=== PATIENT | male | born 1955 | race Caucasian/White ===

== ENCOUNTER → 2018-07-20 | Emergency (ER) | payer BC ==
[~2018-07-20] MED LIST: ACETAMINOPHEN 650MG/RECT SUPP PR PRN; AMIODARONE HCL 150 MG/3 ML INJ IV ONE; AMIODARONE IN DEXTROSE,ISO-OSM 360 MG/200 ML BAG IV ONE; DOPAMINE 400 MG/250ML D5W PREMIX IV ONE; DOPAMINE/D5W 0 MG/0 ML BAG IV ONE; EPINEPHrine 1 MG/10 ML SYR IV ONE; FENTANYL CITR 100 MCG/2 ML ONE; HEPARIN 5000 UNIT/ML 1 ML VIAL ONE; HEPARIN/D5W 25,000 UNIT/500 ML BAG IV ONE; KCL 20 MEQ/100 mL IVPB 20 MEQ/100 ML BAG IV ONE; LIDOCAINE 100 MG/5 ML SYRINGE IV ONE; METOPROLOL TARTRATE 5 MG/5 ML INJ IV ONE; MIDAZOLAM HCL 2 MG/2 ML INJ ONE; NA CHLORIDE 0.9% 1,000 ML IV SCH; NA CHLORIDE 0.9% 2,000 ML ONE; VECURONIUM 10 MG/VIAL IV ONE; WATER FOR INJ,STERILE 10 ML ONE
[2018-07-20 10:11] LABS: Arterial Blood Carboxyhemoglob 0.3 % (0-1.5); Blood O2 Saturation 88.5 % (92-98.5)
[2018-07-20 10:32] LABS: Absolute Monocytes 0.6 K/uL (0.1-1.3); Absolute Neutrophil 7.8 K/uL (1.8-8.0); Basophils % 0.8 % (0-1.3); Hematocrit 37.3 % (39.6-49.0); Lymphocytes % 36.4 % (15.3-44.8); MCH 31.4 pg (27.0-35.0); MPV 8.2 fL (7.6-11.3); RBC Red Blood Cell Count 3.93 M/uL (4.33-5.43)
[2018-07-20 10:35] LABS: Protime INR 0.93
[2018-07-20 10:47] LABS: Albumin 2.8 g/dL (3.4-5.0); Bilirubin Direct 0.2 mg/dL (0-0.2); Bilirubin Total 0.3 mg/dL (0.2-1.0); CKMB Creatine Kinase MB 3.5 ng/mL (0.3-3.6); Potassium 2.7 mmol/L (3.5-5.1); Troponin (Emerg Dept Use Only) 0.18 ng/mL (0.0-0.045)
--- NOTE | 2018-07-20 10:47 | EDPHYS ---
Physician Documentation [facility] Name: Lamont Morocho Age: 63 yrs Sex: Male : 1955 Arrival Date: 07/20/2018 Time: 09:27 Bed 3 Private MD: ED Physician Greg Jara HPI: 07/20 12:27 This 63 yrs old Male presents to ER via EMS with complaints of CPR. kdr 12:27 Preceding the arrest, the patient collapsed. The arrest occurred at work. Pre-hospital kdr course: The arrest was witnessed Bystanders at the scene performed CPR. EMS care prior to arrival: initiation of ACLS, peripheral IV, Antoine tube. ACLS details: Initial rhythm was tachycardia. The presenting rhythm is PEA. Airway: oral intubation, Antoine tube. It is unknown whether or not the patient has had similar symptoms in the past. It is unknown whether or not the patient has recently seen a physician. Historical: - Allergies: 09:18 No Known Allergies; bp - PMHx: 09:18 CHF; Diabetes - IDDM; Hypertension; bp - PSHx: 09:18 Heart stents; bp - Immunization history:: Adult Immunizations unknown. - Social history:: Smoking status: unknown. - Ebola Screening: : Patient negative for fever greater than or equal to 101.5 degrees Fahrenheit, and additional compatible Ebola Virus Disease symptoms Patient denies exposure to infectious person Patient denies travel to an Ebola-affected area in the 21 days before illness onset No symptoms or risks identified at this time. ROS: 12:27 Constitutional: Negative for fever, chills, and weight loss. kdr 12:27 Unable to obtain ROS due to patient is on ventilator. Exam: 12:27 Constitutional: This is a well developed, well nourished patient who is awake, alert, kdr and in no acute distress. Head/Face: Normocephalic, atraumatic. Neck: Trachea midline, no thyromegaly or masses palpated, and no cervical lymphadenopathy. Supple, full range of motion without nuchal rigidity, or vertebral point tenderness. No Meningismus. Chest/axilla: Normal chest wall appearance and motion. Nontender with no deformity. No lesions are appreciated. Abdomen/GI: Soft, non-tender, with normal bowel sounds. No distension or tympany. No guarding or rebound. No evidence of tenderness throughout. Back: No spinal tenderness. No costovertebral tenderness. Full range of motion. Skin: Warm, dry with normal turgor. Normal color with no rashes, no lesions, and no evidence of cellulitis. MS/ Extremity: Pulses equal, no cyanosis. Neurovascular intact. Full, normal range of motion. 12:27 Eyes: Pupils: dilated, bilaterally. 12:27 Cardiovascular: Rate: variable rate and rhythm. 12:27 Respiratory: Respirations: Occasional agonal rhythm. Vital Signs: 09:18 Temp 96.7; Weight 110 kg; bp 09:37 BP 130 / 106; Pulse 146; Resp 27; Pulse Ox 78% ; bp 09:40 BP 97 / 77; Pulse 49; Resp 26; Pulse Ox 84% ; bp 09:44 BP 60 / 52; Pulse 90; Resp 28; Pulse Ox 83% ; bp 09:46 BP 121 / 61; Pulse 87; Resp 24; Pulse Ox 89% ; bp 10:00 BP 202 / 118; Pulse 79; Resp 28; Pulse Ox 91% ; bp 10:15 BP 202 / 168; Pulse 90; Resp 25; Pulse Ox 83% ; bp 10:30 BP 100 / 77; Pulse 95; Resp 22; Pulse Ox 95% ; bp 10:45 BP 78 / 45; Pulse 90; Resp 22; Pulse Ox 91% ; bp 11:00 BP 91 / 44; Pulse 102; Resp 22; Pulse Ox 96% ; bp 11:15 BP 94 / 42; Pulse 106; Resp 22; Pulse Ox 96% ; bp 11:30 BP 92 / 56; Pulse 106; Resp 22; Pulse Ox 97% ; bp 11:45 BP 97 / 50; Pulse 105; Resp 22; Pulse Ox 98% ; bp 12:00 BP 99 / 57; Pulse 102; Resp 22; Pulse Ox 97% ; bp 12:15 BP 103 / 56; Pulse 102; Resp 25; Pulse Ox 100% ; bp MDM: 10:46 Patient medically screened. kdr 12:27 Data reviewed: vital signs, nurses notes. Counseling: I had a detailed discussion with kdr the patient and/or guardian regarding: the historical points, exam findings, and any diagnostic results supporting the discharge/admit diagnosis, lab results, radiology results, the need to transfer to another facility. Physician consultation: D/w Dr. Trejo - no aquatic laborer available today. Dr. Fernandes accepted to [facility]. 07/20 09:53 Order name: Urine Culture bp 07/20 09:53 Order name: ABG bp 07/20 09:53 Order name: Basic Metabolic Panel bp 07/20 09:53 Order name: Blood Culture Adult (2) bp 07/20 09:53 Order name: CBC with Diff bp 07/20 09:53 Order name: Ckmb bp 07/20 09:53 Order name: CPK bp 07/20 09:53 Order name: Lactate bp 07/20 09:53 Order name: LFT's bp 07/20 09:53 Order name: Lipase bp 07/20 09:53 Order name: Procalcitonin bp 07/20 09:53 Order name: Protime (+inr) bp 07/20 09:53 Order name: Ptt, Activated bp 07/20 09:53 Order name: Troponin (emerg Dept Use Only) bp 07/20 09:53 Order name: Urine Microscopic Only bp 07/20 09:53 Order name: Chest Single View XRAY bp 07/20 10:48 Order name: CBC with Automated Diff EDMS 07/20 10:48 Order name: CBC with Automated Diff EDMS 07/20 10:48 Order name: CBC with Automated Diff EDMS 07/20 10:48 Order name: Comprehensive Metabolic Panel EDMS 07/20 10:48 Order name: Comprehensive Metabolic Panel EDMS 07/20 10:48 Order name: Comprehensive Metabolic Panel EDMS 07/20 10:51 Order name: Glucose, Ancillary Testing EDMS 07/20 11:36 Order name: Urine Dipstick--Ancillary (enter results) bd 07/20 11:54 Order name: Urine Dipstick-Ancillary EDMS 07/20 09:53 Order name: Accucheck; Complete Time: 10:34 bp 07/20 09:53 Order name: Cardiac monitoring; Complete Time: 10:34 bp 07/20 09:53 Order name: EKG - Nurse/Tech; Complete Time: 10:34 bp 07/20 09:53 Order name: IV Saline Lock - Large Bore; Complete Time: 10:34 bp 07/20 09:53 Order name: Labs collected and sent; Complete Time: 10:35 bp 07/20 09:53 Order name: O2 Per Protocol; Complete Time: 10:36 bp 07/20 09:53 Order name: O2 Sat Monitoring; Complete Time: 10:36 bp 07/20 09:53 Order name: Urine Dipstick-Ancillary (obtain specimen); Complete Time: 11:35 bp 07/20 09:53 Order name: NG Tube; Complete Time: 10:33 bp 07/20 09:53 Order name: Oreilly; Complete Time: 10:33 bp 07/20 10:48 Order name: CONS Physician Consult EDMS 07/20 10:48 Order name: NPO EDMS Administered Medications: 09:20 Drug: NS 0.9% (30 ml/kg) 30 ml/kg Route: IV; Rate: bolus; Site: left antecubital; bp 12:36 Follow up: IV Status: Completed infusion; IV Intake: 2000ml bp 09:40 Drug: amiodarone 900 mg, D5W 500 ml Route: IVPB; Rate: 1 mg/min; Site: right femoral; bp 12:36 Follow up: IV Status: Infusion continued upon transfer bp 09:54 Drug: fentaNYL (PF) 50 mcg Route: IVP; Site: right femoral; bp 10:44 Follow up: Response: No adverse reaction bp 09:54 Drug: Versed 2 mg Route: IVP; Site: right femoral; bp 10:44 Follow up: Response: No adverse reaction bp 10:30 Drug: VecuroNIUM 10 mg Route: IVP; Site: right femoral; bp 10:43 Follow up: Response: No adverse reaction bp 10:30 Drug: Versed 4 mg Route: IVP; Site: right femoral; bp 10:43 Follow up: Response: No adverse reaction bp 10:42 Drug: Dopamine drip 5 mcg/kg/min - (DOPamine 400 mg, D5W 250 ml) Route: IV; Rate: bp calculated rate; Site: right femoral; 12:35 Follow up: IV Status: Infusion continued upon transfer bp 12:00 Drug: Heparin (DVT/PE Drip) 18 units/kg/hr - (HEParin 71991 units, D5W 500 ml) bp {Co-Signature: chantelle Pemberton RN).} Route: IV; Rate: calculated rate; Site: right femoral; 12:35 Follow up: IV Status: Infusion continued upon transfer bp 12:00 Drug: HEParin 5000 units {Co-Signature: chantelle Pemberton RN).} Route: IV; Rate: bolus; bp Site: right femoral; 12:34 Follow up: IV Status: Completed infusion bp Point of Care Testing: Blood Glucose: 09:19 Blood Glucose: 253 mg/dL; bp 10:47 Blood Glucose: 353 mg/dL; aj Ranges: Critical Glucose Levels:Adult <50 mg/dl or >400 mg/dl <40 mg/dl or >180 mg/dl Disposition: 07/20/18 10:46 Hospitalization ordered by Zainab Gastelum for Inpatient Admission. Preliminary diagnosis is Cardiopulmonary Arrest - with resuscitation. - Bed requested for Intensive Care Unit. - Status is Inpatient Admission. bp - Condition is Critical. - Problem is new. - Symptoms have improved. UTI on Admission? No Signatures: Dispatcher [employer] EDMS Greg Jara MD MD kdr Haylee Jimenez RN RN iw Sam Christianson RN RN bp Amanda Myers RN aj Corrections: (The following items were deleted from the chart) 12:59 10:46 Hospitalization Ordered by Zainab Gastelum MD for Inpatient Admission. Preliminary bp diagnosis is Cardiopulmonary Arrest - with resuscitation. Bed requested for Intensive Care Unit. Status is Inpatient Admission. Condition is Critical. Problem is new. Symptoms have improved. UTI on Admission? No. kdr
--- NOTE | 2018-07-20 10:47 | ER ---
Nurse's Notes 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 BYSTANDERS bp APPLIED AED AND STARTED CPR. Care prior to arrival: Oral airway placed, CPR via thumper performed by bystander performed by EMS was defibrillated and is still in progress IV initiated. 20 GA, in the left antecubital area, Glucose check: 217 Oxygen administered. MAURILIO TUBE. Compressions began at 08:40. 09:18 Acuity: RAHEEL 1 bp :18 Method Of Arrival: EMS: [facility] bp :18 Transition of care: patient was not received from another setting of care. Onset of bp symptoms was July 20, 2018 at 08:40. Risk Assessment: Do you want to hurt yourself or someone else? Patient reports no desire to harm self or others. Initial Sepsis Screen: Does the patient meet any 2 criteria? Systolic BP < 90 mmHg. Altered Mental Status. Yes Does the patient have a suspected source of infection? No. Patient's initial sepsis screen is negative. Triage Assessment: 09:18 General: Appears UNRESPONSIVE. Pain: Unable to use pain scale. Patient is unresponsive. bp Historical: - Allergies: 09:18 No Known Allergies; bp - PMHx: 09:18 CHF; Diabetes - IDDM; Hypertension; bp - PSHx: 09:18 Heart stents; bp - Immunization history:: Adult Immunizations unknown. - Social history:: Smoking status: unknown. - Ebola Screening: : Patient negative for fever greater than or equal to 101.5 degrees Fahrenheit, and additional compatible Ebola Virus Disease symptoms Patient denies exposure to infectious person Patient denies travel to an Ebola-affected area in the 21 days before illness onset No symptoms or risks identified at this time. Screenin:18 Abuse screen: Denies threats or abuse. Denies injuries from another. Nutritional bp screening: No deficits noted. Tuberculosis screening: No symptoms or risk factors identified. 12:30 Fall Risk None identified. bp Assessment: 09:18 CPR assessment: unresponsive, agonal respirations, pulses present w/ compressions. bp Cardiac rhythm is PEA. General: Appears UNRESPONSIVE. Behavior is unresponsive. Neuro: Level of Consciousness is unresponsive, Pupils are non-reactive. Cardiovascular: Rhythm is PEA. Respiratory: Breath sounds are clear bilaterally. 09:40 Reassessment: ROSC. AMIO GTT STARTED. FAMILY CONTACTED BY COMMERCIAL BAKING TEACHER, EN ROUTE. bp 09:58 Reassessment: VT NOTED ON MONITOR, DEFIB AT 200J WITH ROSC. bp 10:16 Reassessment: VT ON MONITOR. 200J DEFIB AND ROSC. bp 10:23 Reassessment: VT ON MONITOR, DEFIB AT 200J WITH ROSC. Reassessment: FAMILY AT B/S, bp AWAITING RESPONSE FROM DIRECTOR OF CATEGORY MANAGEMENT. 11:21 Reassessment: VT ON MONITOR, 200J DEFIB AND ROSC AT ST. bp 11:30 Reassessment: FAMILY AT B/, ATTENDING C/S WITH CARDIO. bp 11:55 Reassessment: wallet was given to daughter by security staff. iw 12:37 Reassessment: [facility] AT B/ FOR TRANSPORT. bp Vital Signs: 09:18 Temp 96.7; Weight 110 kg; bp 09:37 BP 130 / 106; Pulse 146; Resp 27; Pulse Ox 78% ; bp 09:40 BP 97 / 77; Pulse 49; Resp 26; Pulse Ox 84% ; bp 09:44 BP 60 / 52; Pulse 90; Resp 28; Pulse Ox 83% ; bp 09:46 BP 121 / 61; Pulse 87; Resp 24; Pulse Ox 89% ; bp 10:00 BP 202 / 118; Pulse 79; Resp 28; Pulse Ox 91% ; bp 10:15 BP 202 / 168; Pulse 90; Resp 25; Pulse Ox 83% ; bp 10:30 BP 100 / 77; Pulse 95; Resp 22; Pulse Ox 95% ; bp 10:45 BP 78 / 45; Pulse 90; Resp 22; Pulse Ox 91% ; bp 11:00 BP 91 / 44; Pulse 102; Resp 22; Pulse Ox 96% ; bp 11:15 BP 94 / 42; Pulse 106; Resp 22; Pulse Ox 96% ; bp 11:30 BP 92 / 56; Pulse 106; Resp 22; Pulse Ox 97% ; bp 11:45 BP 97 / 50; Pulse 105; Resp 22; Pulse Ox 98% ; bp 12:00 BP 99 / 57; Pulse 102; Resp 22; Pulse Ox 97% ; bp 12:15 BP 103 / 56; Pulse 102; Resp 25; Pulse Ox 100% ; bp ED Course: 09:18 Arm band placed on. bp 09:27 Patient arrived in ED. bd 09:27 Assisted provider with intubation using 7.5 mm ETT via oral route. ET tube secured at bp 23cm at the teeth. Set up intubation tray. Intubated by Abhijit SARABIA Placement verified by CXR, auscultating bilateral breath sounds, Patient tolerated well. 09:33 [employer] wallet with 891.00 was given to security to be locked in safe.. bd 09:46 Assisted provider with central line placement. Set up central line tray. Triple lumen bp line placed in right femoral. Line placed by Greg Jara MD Placement verified by blood return, Dressed with Tegaderm, Blood was collected. Patient tolerated UNRESPONSIVE Before procedure, did Practitioner(s) obtain informed consent? No. Patient \T\ family education about procedure, CLABSI prevention and S/S of infection? No. Time-out/Briefing performed prior to start of procedure? No. Was handwashing/sanitizing done immediately prior to procedure? Yes. Was patient positioned to in a way to prevent air embolism? Yes. Was procedure site sterilized? Yes, with Was the site allowed to dry? No. Was local anesthetic and/or sedation utilized? No. During the procedure, did the Practitioner(s) maintain a sterile field? Yes. Were unused ports clamped during insertion? Yes. Was a 2nd qualified MD obtained after 3 unsuccessful insertion attempts? N/A. Was blood aspirated from each lumen? Yes. After the procedure, did the Practitioner(s) clean the site and apply a sterile dressing? Yes. 09:48 Sam Christianson, RN is Primary Nurse. bp 10:01 Triage completed. bp 10:26 Radiology exam delayed due to pt not ready per reyes Washburn. mw3 10:32 EKG done, by cath laboratory technician. reviewed by Greg Jara MD. at1 10:35 Greg Jara MD is Attending Physician. kdr 10:43 Zainab Gastelum MD is Hospitalizing Provider. kdr 10:44 Notified ED physician of a critical lab result(s). k 2.7, alt 498. iw 10:46 Chest Single View XRAY In Process Unspecified. EDMS 10:47 Radiology exam delayed due to pt in not stable at this time. mw3 11:35 Urine collected: Oreilly catheter specimen, cloudy. dh3 12:31 Patient transferred, IV remains in place. bp Administered Medications: 09:20 Drug: NS 0.9% (30 ml/kg) 30 ml/kg Route: IV; Rate: bolus; Site: left antecubital; bp 12:36 Follow up: IV Status: Completed infusion; IV Intake: 2000ml bp 09:40 Drug: amiodarone 900 mg, D5W 500 ml Route: IVPB; Rate: 1 mg/min; Site: right femoral; bp 12:36 Follow up: IV Status: Infusion continued upon transfer bp 09:54 Drug: fentaNYL (PF) 50 mcg Route: IVP; Site: right femoral; bp 10:44 Follow up: Response: No adverse reaction bp 09:54 Drug: Versed 2 mg Route: IVP; Site: right femoral; bp 10:44 Follow up: Response: No adverse reaction bp 10:30 Drug: VecuroNIUM 10 mg Route: IVP; Site: right femoral; bp 10:43 Follow up: Response: No adverse reaction bp 10:30 Drug: Versed 4 mg Route: IVP; Site: right femoral; bp 10:43 Follow up: Response: No adverse reaction bp 10:42 Drug: Dopamine drip 5 mcg/kg/min - (DOPamine 400 mg, D5W 250 ml) Route: IV; Rate: bp calculated rate; Site: right femoral; 12:35 Follow up: IV Status: Infusion continued upon transfer bp 12:00 Drug: Heparin (DVT/PE Drip) 18 units/kg/hr - (HEParin 59445 units, D5W 500 ml) bp {Co-Signature: chantelle (Courtney Pemberton RN).} Route: IV; Rate: calculated rate; Site: right femoral; 12:35 Follow up: IV Status: Infusion continued upon transfer bp 12:00 Drug: HEParin 5000 units {Co-Signature: chantelle (Courtney Pemberton RN).} Route: IV; Rate: bolus; bp Site: right femoral; 12:34 Follow up: IV Status: Completed infusion bp Point of Care Testing: Blood Glucose: 09:19 Blood Glucose: 253 mg/dL; bp 10:47 Blood Glucose: 353 mg/dL; aj Ranges: Intake: 12:36 IV: 2000ml; Total: 2000ml. bp Outcome: 09:40 Outcome Resuscitation successful bp 10:46 Decision to Hospitalize by Provider. kdr 12:31 Transferred by helicopter Note: [facility] bp 12:31 critical 12:31 Instructed on the need for transfer. 12:59 Patient left the ED. bp Signatures: Dispatcher [employer] EDMS Ronda Choi Amanda, RN Greg Cerna MD MD [facility] Haylee Jimenez RN RN Courtney Londono, rehab trainer EKG Tat1 Eula Valdez 3 Sam Christianson RN RN bp Martha Richardson 3 Courtney lockhart
--- NOTE | 2018-07-20 10:52 | RAD REPORT ---
EXAM DESCRIPTION: RAD - Chest Single View - 07/20/2018 10:43 am CLINICAL HISTORY: CHEST PAIN Chest pain. COMPARISON: No comparisons FINDINGS: Portable technique limits examination quality. Tip of the ET tube appears above the armand at the level of the clavicular heads. Enteric tube descen ds into the stomach. Bilateral pulmonary opacities probably represent mild pulmonary edema or pneumon ia. The heart is mildly enlarged in size.
[2018-07-20 11:53] LABS: Urine Blood 2+ (NEG); Urine Glucose TRACE (NEG); Urine Protein 3+ (NEG); Urine Specific Gravity 1.025 (1.005-1.030); Urine pH 5.5 (5.0-7.0)
[2018-07-20 12:01] LABS: Urine Amorphous Sediment 4+ /HPF (NONE SEEN); Urine Bacteria >50 /HPF (NONE SEEN); Urine Culture Reflex Order REFLEXED; Urine Mucus 1+ /HPF (NONE SEEN); Urine RBC <5 /HPF (NONE SEEN)
--- NOTE | 2018-07-20 23:47 | HP ---
Date of Admission: 07/20/2018 Chief Complaint: Cardiac arrest. Consultants: Ga Rich MD, Cardiology. Code Status: Full. History Of Present Illness: The patient is a 63-year-old male with past medical history of heart disease, status post recent stent, diabetes, congestive heart failure, hypertension, who was in his usual state of health until a few days prior to admission, when according to the daughter, the patient had been complaining of some worsening swelling of his lower extremities along with some generalized malaise and blood pressure being elevated in the 200s. The patient's symptoms were constant, moderate, progressively worsening. According to the daughter, he does not follow with his fluid restricted, sodium restricted diet. The patient was at work on the day of admission when he had a sudden cardiac arrest and collapsed. Fortunately , there were EMS standing by who were able to resuscitate the patient. The patient received approximately 30 minutes of CPR with bystanders and then EMS took over. The patient also was shocked multiple times. The patient continued to require ACLS and CPR after coming into the ER for another 40 minutes until return of circulation. The patient did have multiple episodes of V-tach and was shocked on multiple occasions. His workup revealed troponin of 0.18, elevated liver enzymes and creatinine. Potassium was low at 2.7. His white count was 13,000. ABG showed pH of 7.16, pCO2 of 55, pO2 of 74, bicarb of 19. Lactic acid was 13.6. Chest x-ray showed bilateral pulmonary opacities representing pulmonary edema or pneumonia. The patient was intubated. He was started on amiodarone drip and dopamine drip. His blood pressure was in the 90s to 80s systolic. The patient's EKG showed an intraventricular arrhythmia. After discussion with the patient's door liner at [place], who spoke with Dr. Jara, who suspected stent thrombosis. The patient was referred for admission. When seen in the ER, he was intubated, nonsedated, on multiple drips including amiodarone and dopamine. Past Medical History: Coronary artery disease, diabetes mellitus type 2, congestive heart failure, hypertension. Surgical History: Recent cardiac stents in the RCA and LAD. Social History: Unknown if the patient smokes or drinks. Family History: Noncontributory, reviewed. Review of Systems: Unable to obtain due to patient's medical condition. Allergies: NO KNOWN DRUG ALLERGIES. Medications: List reviewed. Physical Examination: Vital Signs: Temperature 96.7, heart rate 146, blood pressure 97/77, respirations 26, O2 84% on room air. General: Intubated, nonsedated, nonresponsive, ill-appearing male. HEENT: Normocephalic, atraumatic. PERRLA. Oropharynx is clear. Conjunctivae anicteric. Neck: Supple. Trachea midline. ET tube in place. CV: S1, S2. No murmurs. Peripheral pulses weak. Respiratory: Diminished breath sounds, especially at the bases. Crackles heard. The patient is tachypneic, use of accessory muscles present. Gastrointestinal: Abdomen is soft, mildly distended. Hypoactive bowel sounds. Extremities: No clubbing, cyanosis. The patient has 2+ edema bilateral lower extremities. Neuro: Intubated, nonsedated, nonresponsive. Skin: No rashes. Normal skin turgor. Cap refill is greater than 2 seconds. No mottling. Labs: Sodium 143, potassium 2.7, chloride 103, CO2 21, BUN 26, creatinine 2.2, glucose 366, lactate 13.6, calcium 9.1, AST 454, ALT 501. Troponin 0.18, albumin 2.8, procalcitonin 0.13, lipase 235. WBC 13.7, H and H are 12.3 and 37.3, platelets 369, neutrophils 56%. INR 0.93. ABG, pH shows 7.16, pCO2 of 55.8, pO2 of 74, bicarb 19. UA: Negative nitrite, negative leukocyte, 10-20 wbc's, greater than 50 bacteria. Chest x-ray shows pulmonary edema. EKG shows atrioventricular rhythm. Assessment And Plan: 1. Cardiopulmonary arrest, likely due to stent thrombosis versus pulmonary embolism or arrhythmia. 2. Cardiogenic shock. The patient is on dopamine secondary to above. 3. Multiorgan dysfunction due to hypoxia. The patient was coded for over an hour. The patient has elevated LFTs and kidney dysfunction. 4. Hypokalemia. 5. Elevated troponin level. 6. Metabolic acidosis. 7. Bacteriuria. 8. History of congestive heart failure, unknown EF, acute on chronic. 9. Coronary artery disease status post recent stents, on blood thinners. 10. Diabetes mellitus type 2, not well controlled with hyperglycemia, non- insulin requiring. 11. Essential hypertension, currently hypotensive shock. 12. Obesity. 13. Acute respiratory failure Plan: Admit the patient to ICU. We will contact Cardiology. The patient will likely need to go to cardiac photonic laboratory technician for intervention. Overall prognosis remains very poor. Family at the bedside including son and daughter. They have been updated on the prognosis. The patient is full code. We will discuss further with Cardiology and ER attending regarding care. HAZEL Voice ID: [id number] MTDD
--- NOTE | 2018-07-21 09:27 | EKG ---
Test Date: 2018-07-20 Test Time: 10:09:19 Oncology Rep: NERI MEASUREMENT RESULTS: Intervals: Rate: 95 NC: 212 QRSD: 152 QT: 374 QTc: 469 [place]: P: 13 NC: 212 QRS: 104 T: 103 INTERPRETIVE STATEMENTS: Sinus rhythm with 1st degree AV block Rightward axis ACUTE INFERIOR IA Abnormal ECG No previous ECG available for comparison Electronically Signed On 07-21-18 09:26:35 NURSING RESIDENT by Tee Franco
== END ==
LOC: ER 09:22 → UNDOADMIN 10:44 → ERHOLD 10:44
PROC: 0BH17EZ Insertion of Endotracheal Airway into Trachea, Via Natural or Artificial Opening (ICD-10-PCS; principal; 2018-07-20)
PROC: 5A1935Z Respiratory Ventilation, Less than 24 Consecutive Hours (ICD-10-PCS; 2018-07-20)
PROC: 06HM33Z Insertion of Infusion Device into Right Femoral Vein, Percutaneous Approach (ICD-10-PCS; 2018-07-20)
DX: I46.9 Cardiac arrest, cause unspecified (principal); I50.9 Heart failure, unspecified; J96.01 Acute respiratory failure with hypoxia; I10 Essential (primary) hypertension; E11.9 Type 2 diabetes mellitus without complications; E66.9 Obesity, unspecified; E87.6 Hypokalemia; E87.2 Acidosis; R82.71 Bacteriuria; Z95.818 Presence of other cardiac implants and grafts
CPT/HCPCS: 31500; 36415; 71045; 80048; 80076; 81003; 81015; 82550; 82553; 82805; 82962; 83605; 83690; 84145; 84484; 85025; 85610; 85730; 87040; 87086; 87088; 92950; 93005; 94002; 99291; J0171; J0282; J1265; J1644; J2250; J3010; J7030